=== PATIENT | male | born 1950 | race American Indian/Alaskan Native ===

== ENCOUNTER 2017-03-30 13:30 | Emergency (ER) | payer MEDICARE ==
--- NOTE | 2017-03-30 14:12 | XRay Report ---
FINAL REPORT EXAM: XR CHEST ROUTINE 2V HISTORY: Shortness of breath TECHNIQUE: Two view chest PA and lateral PRIORS: None. FINDINGS: Cardiac and mediastinal contours are unremarkable. No focal pulmonary infiltrate is identified. No pleural fluid collection seen. Pulmonary vasculature is unremarkable. There is a increase kyphosis lower thoracic spine with multiple compression fractures present age indeterminate IMPRESSION: Increase kyphosis of the thoracic spine with multiple compression fractures age indeterminate No acute cardiopulmonary abnormality
[2017-03-30 14:34] LABS: Eosinophils % (Auto) 1.3 % (0.0-4.3); Hematocrit 40.1 % (35.5-45.6); Hemoglobin 13.3 gm/dl (11.8-15.2); Mean Corpuscular HGB Conc 33 % (32-34); Mean Corpuscular Hemoglobin 32 pg (28-32); Mean Corpuscular Volume 96 fl (84-94); Platelet Count 145 K/mm3 (140-440); Red Blood Count 4.19 M/mm3 (3.65-5.03); Red Cell Distribution Width 13.6 % (13.2-15.2); White Blood Count 7.6 K/mm3 (4.5-11.0)
[2017-03-30 14:50] LABS: Anion Gap 19 mmol/L; BUN/Creatinine Ratio 20; Blood Urea Nitrogen 18 mg/dL (9-20); Calcium 8.9 mg/dL (8.4-10.2); Carbon Dioxide 25 mmol/L (22-30); Chloride 99.9 mmol/L (98-107); Glucose 133 mg/dL (75-100); Lipase 39 units/L (13-60); Potassium 4.1 mmol/L (3.6-5.0); Sodium 140 mmol/L (137-145)
[2017-03-30] MEDS ORDERED: ANTIVERT PO ONE (18:47)
--- NOTE | 2017-03-30 19:39 | Emergency Department Report ---
ED General Adult HPI - General Chief complaint: Weakness Stated complaint: WEAKNESS Time Seen by Provider: 03/30/17 18:11 Source: patient, family Mode of arrival: Ambulatory Limitations: Physical Limitation - History of Present Illness Initial comments: 66-year-old male here with dizzy spells seems to be positional vertigo no headache no stiff neck symptoms are improved and ED. pt states last night awoke w/ int. dizzy spells , no baird no stiff neck no photophobia, pt states it comes and goes, no problems w/ ambulating now in ed, sx seem positional and worse w/ head movement, w/ int n/v, denies other c/o, no cp no syncope, no n/v at present. -: Gradual Severity scale (0 -10): 0 Consistency: intermittent Associated Symptoms: nausea/vomiting. denies: confusion, chest pain, cough, diaphoresis, fever/chills, headaches, loss of appetite, malaise, rash, seizure, shortness of breath, syncope, weakness - Related Data Previous Rx's Medication Instructions Recorded Last Taken Type ALBUTEROL Inhaler [ProAir HFA 2 puff IH QID PRN #1 inhalation 09/14/13 Unknown Rx Inhaler] Tobramycin [Tobrex 0.3%] 1 - 2 drop OP Q4HR #14 drops 09/14/13 Unknown Rx Amoxicillin [Trimox CAP] 500 mg PO TID #30 capsule 11/09/13 Unknown Rx prednisoLONE 15 ml PO QDAY 5 Days ml 11/09/13 Unknown Rx Ranitidine HCl [Zantac] 300 mg PO QDAY #20 tablet 01/20/14 Unknown Rx Prednisone [predniSONE 10 mg 10 mg PO .TAPER #1 tab.ds.pk 11/13/14 Unknown Rx (6-Day Pack, 21 Tabs)] Cyclobenzaprine HCl [Flexeril 5 MG 5 mg PO BID PRN #20 tablet 08/14/15 Unknown Rx TAB] Diclofenac Sodium 50 mg PO Q12HR PRN #14 tablet.dr 08/14/15 Unknown Rx oxyCODONE /ACETAMINOPHEN [Percocet 1 tab PO Q6HR PRN #20 tablet 09/14/15 Unknown Rx 5/325] Ibuprofen [Motrin 600 MG tab] 600 mg PO Q8H PRN #30 tablet 03/14/16 Unknown Rx Allergies Allergy/AdvReac Type Severity Reaction Status Date / Time esomeprazole magnesium Allergy Unknown Verified 11/13/14 14:19 [From Nexium] ED Review of Systems ROS: Stated complaint: WEAKNESS Other details as noted in HPI Comment: All other systems reviewed and negative Constitutional: denies: diaphoresis, malaise Eyes: denies: eye discharge, vision change ENT: denies: dental pain, hearing loss, epistaxis, congestion Respiratory: denies: shortness of breath, SOB with exertion, SOB at rest, stridor, wheezing Cardiovascular: denies: chest pain, palpitations, dyspnea on exertion, orthopnea , edema, syncope, paroxysmal nocturnal dyspnea Gastrointestinal: denies: abdominal pain, nausea, vomiting, diarrhea, constipation, hematemesis, melena, hematochezia Musculoskeletal: denies: joint swelling, arthralgia Neurological: vertigo. denies: headache, weakness, numbness, paresthesias, confusion, abnormal gait Hematological/Lymphatic: denies: easy bleeding ED Past Medical Hx - Past Medical History Previous Medical History?: Yes Hx Hypertension: Yes (HTN) Hx CVA: No Hx Heart Attack/AMI: No Hx Diabetes: No Hx Deep Vein Thrombosis: No Hx Pulmonary Embolism: No Hx GERD: No Hx Liver Disease: No Hx Renal Disease: No Hx of Cancer: Yes (prostate) Hx Arthritis: Yes (ARTHRITIS) Hx Seizures: No Hx Kidney Stones: No Hx Asthma: No Hx COPD: No Hx Tuberculosis: No Hx Dementia: No Hx HIV: No Additional medical history: Patient states his prostate cancer was caught early and treated with radiation and has been no recurrence or metastases. - Surgical History Past Surgical History?: Yes Hx Coronary Stent: No Hx Open Heart Surgery: No Hx Pacemaker: No Hx Internal Defibrillator: No Hx Cholecystectomy: No Hx Appendectomy: No Hx Breast Surgery: No Additional Surgical History: bilateral hip replacement, glaucoma surgery - Social History Smoking Status: Never Smoker Substance Use Type: Alcohol, Prescribed - Medications Home Medications: Home Medications Medication Instructions Recorded Confirmed Last Taken Type ALBUTEROL Inhaler [ProAir HFA 2 puff IH QID PRN #1 inhalation 09/14/13 Unknown Rx Inhaler] Tobramycin [Tobrex 0.3%] 1 - 2 drop OP Q4HR #14 drops 09/14/13 Unknown Rx Amoxicillin [Trimox CAP] 500 mg PO TID #30 capsule 11/09/13 Unknown Rx prednisoLONE 15 ml PO QDAY 5 Days ml 11/09/13 Unknown Rx Ranitidine HCl [Zantac] 300 mg PO QDAY #20 tablet 01/20/14 Unknown Rx Prednisone [predniSONE 10 mg 10 mg PO .TAPER #1 tab.ds.pk 11/13/14 Unknown Rx (6-Day Pack, 21 Tabs)] Cyclobenzaprine HCl [Flexeril 5 MG 5 mg PO BID PRN #20 tablet 08/14/15 Unknown Rx TAB] Diclofenac Sodium 50 mg PO Q12HR PRN #14 tablet.dr 08/14/15 Unknown Rx oxyCODONE /ACETAMINOPHEN [Percocet 1 tab PO Q6HR PRN #20 tablet 09/14/15 Unknown Rx 5/325] Ibuprofen [Motrin 600 MG tab] 600 mg PO Q8H PRN #30 tablet 03/14/16 Unknown Rx ED Physical Exam - General Limitations: Physical Limitation General appearance: alert, in no apparent distress - Head Head exam: Present: atraumatic, normocephalic, normal inspection - Eye Eye exam: Present: normal appearance, PERRL, EOMI. Absent: nystagmus - ENT ENT exam: Present: normal exam, normal orophraynx, TM's normal bilaterally, normal external ear exam - Neck Neck exam: Present: full ROM. Absent: tenderness, meningismus - Respiratory Respiratory exam: Present: normal lung sounds bilaterally. Absent: respiratory distress, wheezes, rales, rhonchi, stridor, chest wall tenderness, accessory muscle use, decreased breath sounds, prolonged expiratory - Cardiovascular Cardiovascular Exam: Present: regular rate, normal rhythm, normal heart sounds - GI/Abdominal GI/Abdominal exam: Present: soft. Absent: tenderness, guarding, rebound, mass, bruit, pulsatile mass - Rectal Rectal exam: Present: deferred, other (denies black or bloody stool) - Extremities Exam Extremities exam: Present: normal inspection, full ROM, normal capillary refill. Absent: tenderness, pedal edema, joint swelling, calf tenderness - Back Exam Back exam: Present: normal inspection. Absent: tenderness, CVA tenderness (R), CVA tenderness (L), muscle spasm, paraspinal tenderness, vertebral tenderness - Neurological Exam Neurological exam: Present: alert, altered, oriented X3, CN II-XII intact, normal gait, other (negative cerebellar findings). Absent: motor sensory deficit - Psychiatric Psychiatric exam: Present: normal affect ED Course Vital Signs 03/30/17 03/30/17 03/30/17 13:37 17:45 19:48 Temperature 97.5 F L 98.7 F Pulse Rate 78 87 Respiratory 18 14 15 Rate Blood Pressure 176/93 172/85 O2 Sat by Pulse 96 98 Oximetry - Reevaluation(s) Reevaluation #1: 03/30/17 20:[address] scanning he had some Antivert. He was not ataxic without cerebellar findings. Symptoms are consistent with peripheral vertigo. ED Medical Decision Making - Lab Data Result diagrams: 03/30/17 14:15 03/30/17 14:15 - EKG Data -: EKG Interpreted by Me EKG shows normal: sinus rhythm - EKG Data Interpretation: unchanged when compared t, nonspecific ST-T wave jose - Radiology Data Radiology results: report reviewed - Medical Decision Making CT brain shows atrophy otherwise process. Chest x-ray shows compression fractures age indeterminate of the spine. Patient was apparently wanting to leave AMA without the CT was waiting to be red I was not notified of this. I returned CT was also discussed the workup and the results with the patient and family they were not in the room. Nurses stated that the patient was still alert and oriented 3 as he was on my exam he was verbal and cognizant nonintoxicated he was informed of risks of leaving including and disability and he elected to sign out AMA. He was discharged into the care of family members after signing AMA. Critical care attestation.: If time is entered above; I have spent that time in minutes in the direct care of this critically ill patient, excluding procedure time. ED Disposition Clinical Impression: Positional vertigo Disposition: DC-07 LEFT AGAINST MED ADVICE Is pt being admited?: No Condition: Stable Instructions: Vertigo (ED) Additional Instructions: See her doctor in one day return immediately for new or alarming symptoms or call 911 Referrals: KENJI MOORE MD [Primary Care Provider] - 3-5 Days Time of Disposition: 20:32
--- NOTE | 2017-03-30 20:08 | Cat Scan Report ---
FINAL REPORT EXAM: CT HEAD/BRAIN WO CON HISTORY: dizzy TECHNIQUE: Standard unenhanced CT of the head at 5.0 millimeter axial increments PRIORS: None. FINDINGS: The ventricular system is normal in size and configuration. There is mild cerebral atrophy. There is no evidence for mass lesion, mass effect, midline shift, acute intracranial hemorrhage, or acute ischemia/ infarction. Visualized paranasal sinuses demonstrates mucosal thickening in the right sphenoid, bilateral maxillary, and frontal sinuses. IMPRESSION: Mild atrophy. Chronic sinusitis. No acute intracranial process noted.
[2017-03-30 21:01] VITALS: BP 168/86
== END 2017-03-30 20:13 | disposition left against medical advice (07) ==
LOC: ED 13:30
DX: H81.10 Benign paroxysmal vertigo, unspecified ear (principal); I10 Essential (primary) hypertension; M19.90 Unspecified osteoarthritis, unspecified site; Z85.46 Personal history of malignant neoplasm of prostate
CPT/HCPCS: 36415; 70450; 71020; 80048; 83690; 84484; 85025; 93005; 93010; 99285

== ENCOUNTER 2019-05-30 13:50 | Emergency (ER) | payer MEDICARE ==
[2019-05-30 14:35] VITALS: BP 136/69
--- NOTE | 2019-05-30 14:44 | Event Note ---
ED Screening Note ED Screening Note: states he has generalized pain states that it mostly hurts him in the bilateral shoulders and lower back no fall or injury states he cannot lift things up as he used to states he saw his pcp and was diagnosed with arthritis, advised to do injections but he declined was given prescription for norco hx of bone cancer This initial assessment/diagnostic orders/clinical plan/treatment(s) is/are subject to change based on patients health status, clinical progression and re- assessment by fellow clinical providers in the ED. Further treatment and workup at subsequent clinical providers discretion. Patient/guardian urged not to elope from the ED as their condition may be serious if not clinically assessed and managed. just needs pain control
[2019-05-30] MEDS ORDERED: predniSONE 20 MG TAB PO ONE (16:39)
--- NOTE | 2019-05-30 16:45 | Emergency Department Report ---
ED General Adult HPI - General Chief complaint: Pain General Stated complaint: WEAK Time Seen by Provider: 05/30/19 14:34 Source: patient Mode of arrival: Ambulatory Limitations: No Limitations - History of Present Illness Initial comments: 68-year-old male with a history of hypertension controlled with medication, history of prostate cancer treated with radiation and glaucoma presents the ED complaining of bilateral shoulder and back pain that initially started a year ago. Patient states symptoms got better but recently his symptoms have worsened causing a lot of pain. Patient states that he is having pain with movement, standing or any type of movement. Patient states pain i feels like it is all over. Patient states that he followed up with his primary care physician Dr. akilah rice who states that he has arthritis and suggested some steroid injections. - Related Data Previous Rx's Medication Instructions Recorded Last Taken Type Albuterol INH(or & Nicu Only) 2 puff IH QID PRN #1 inhalation 09/14/13 Unknown Rx [ProAir HFA Inhaler] Tobramycin [Tobrex 0.3%] 1 - 2 drop OP Q4HR #14 drops 09/14/13 Unknown Rx Amoxicillin [Trimox CAP] 500 mg PO TID #30 capsule 11/09/13 Unknown Rx prednisoLONE 15 ml PO QDAY 5 Days ml 11/09/13 Unknown Rx Ranitidine HCl [Zantac] 300 mg PO QDAY #20 tablet 01/20/14 Unknown Rx Prednisone [predniSONE 10 mg 10 mg PO .TAPER #1 tab.ds.pk 11/13/14 Unknown Rx (6-Day Pack, 21 Tabs)] Cyclobenzaprine HCl [Flexeril 5 MG 5 mg PO BID PRN #20 tablet 08/14/15 Unknown Rx TAB] Diclofenac Sodium 50 mg PO Q12HR PRN #14 tablet.dr 08/14/15 Unknown Rx oxyCODONE /ACETAMINOPHEN [Percocet 1 tab PO Q6HR PRN #20 tablet 09/14/15 Unknown Rx 5/325] Ibuprofen [Motrin 600 MG tab] 600 mg PO Q8H PRN #30 tablet 03/14/16 Unknown Rx predniSONE [Deltasone] 60 mg PO DAILY #20 tablet 05/30/19 Unknown Rx Allergies Allergy/AdvReac Type Severity Reaction Status Date / Time esomeprazole magnesium Allergy Unknown Verified 11/13/14 14:19 [From Nexium] ED Review of Systems ROS: Stated complaint: WEAK Other details as noted in HPI Comment: All other systems reviewed and negative ED Past Medical Hx - Past Medical History Hx Hypertension: Yes (HTN) Hx CVA: No Hx Heart Attack/AMI: No Hx Diabetes: No Hx Deep Vein Thrombosis: No Hx Pulmonary Embolism: No Hx GERD: No Hx Liver Disease: No Hx Renal Disease: No Hx Arthritis: Yes (ARTHRITIS) Hx Seizures: No Hx Kidney Stones: No Hx Asthma: No Hx COPD: No Hx Tuberculosis: No Hx Dementia: No Hx HIV: No Additional medical history: Prostate CA - Surgical History Hx Coronary Stent: No Hx Open Heart Surgery: No Hx Pacemaker: No Hx Internal Defibrillator: No Hx Cholecystectomy: No Hx Appendectomy: No Hx Breast Surgery: No Additional Surgical History: Bilatteral hip replacement. - Social History Smoking Status: Never Smoker Substance Use Type: None - Medications Home Medications: Home Medications Medication Instructions Recorded Confirmed Last Taken Type Albuterol INH(or & Nicu Only) 2 puff IH QID PRN #1 inhalation 09/14/13 Unknown Rx [ProAir HFA Inhaler] Tobramycin [Tobrex 0.3%] 1 - 2 drop OP Q4HR #14 drops 09/14/13 Unknown Rx Amoxicillin [Trimox CAP] 500 mg PO TID #30 capsule 11/09/13 Unknown Rx prednisoLONE 15 ml PO QDAY 5 Days ml 11/09/13 Unknown Rx Ranitidine HCl [Zantac] 300 mg PO QDAY #20 tablet 01/20/14 Unknown Rx Prednisone [predniSONE 10 mg 10 mg PO .TAPER #1 tab.ds.pk 11/13/14 Unknown Rx (6-Day Pack, 21 Tabs)] Cyclobenzaprine HCl [Flexeril 5 MG 5 mg PO BID PRN #20 tablet 08/14/15 Unknown Rx TAB] Diclofenac Sodium 50 mg PO Q12HR PRN #14 tablet.dr 08/14/15 Unknown Rx oxyCODONE /ACETAMINOPHEN [Percocet 1 tab PO Q6HR PRN #20 tablet 09/14/15 Unknown Rx 5/325] Ibuprofen [Motrin 600 MG tab] 600 mg PO Q8H PRN #30 tablet 03/14/16 Unknown Rx predniSONE [Deltasone] 60 mg PO DAILY #20 tablet 05/30/19 Unknown Rx ED Physical Exam - General Limitations: No Limitations General appearance: alert, in no apparent distress - Head Head exam: Present: atraumatic, normocephalic - Eye Eye exam: Present: normal appearance - ENT ENT exam: Present: mucous membranes moist - Neck Neck exam: Present: normal inspection, full ROM. Absent: tenderness, lymphadenopathy - Respiratory Respiratory exam: Present: normal lung sounds bilaterally. Absent: respiratory distress - Cardiovascular Cardiovascular Exam: Present: regular rate, normal rhythm. Absent: systolic murmur, diastolic murmur, rubs, gallop - GI/Abdominal GI/Abdominal exam: Present: soft, normal bowel sounds - Rectal Rectal exam: Present: deferred - Extremities Exam Extremities exam: Present: normal inspection, full ROM, tenderness (To palpation of the joint and muscles muscles), normal capillary refill. Absent: joint swelling, calf tenderness - Back Exam Back exam: Present: normal inspection - Neurological Exam Neurological exam: Present: alert, oriented X3 - Psychiatric Psychiatric exam: Present: normal affect, normal mood - Skin Skin exam: Present: warm, dry, intact, normal color. Absent: rash ED Course Vital Signs 05/30/19 13:56 Temperature 97.6 F Pulse Rate 72 Respiratory 18 Rate Blood Pressure 136/69 O2 Sat by Pulse 96 Oximetry ED Medical Decision Making - Medical Decision Making 68-year-old male who presents with arthralgia and myalgia. I discussed with patient that bone pain could be due to metastatic bone cancer from the prostate. Patient did state that he has an appointment at [facility] next month for bone scan. I discussed with patient to make sure he keeps that appointment and call [facility] for follow-up appointment or sooner appointment. Patient states that he is primary care physician already has been taking [facility] pain medication. Patient put on a couple of days of prednisone Vital signs are normal patient is in no acute distress. Patient able to ambulate without any problems. Patient understands instructions and to follow-up Critical care attestation.: If time is entered above; I have spent that time in minutes in the direct care of this critically ill patient, excluding procedure time. ED Disposition Clinical Impression: Pain due to malignant neoplasm metastatic to bone Disposition: - TO HOME OR SELFCARE Is pt being admited?: No Does the pt Need Aspirin: No Condition: Stable Instructions: Chronic Pain (ED) Additional Instructions: Make sure to follow up with the primary care physician as discussed. Take all your medications as you've been prescribed. If you have any worsening symptoms or develop new symptoms please return to ED immediately. Prescriptions: predniSONE [Deltasone] 60 mg PO DAILY #20 tablet Referrals: DHAVAL VASQUEZ MD [Primary Care Provider] - 3-5 Days Forms: Accompanied Note, Work/School Release Form(ED) Time of Disposition: 16:51
== END 2019-05-30 17:04 | disposition home or self-care (01) ==
LOC: ED 13:50
DX: G89.3 Neoplasm related pain (acute) (chronic) (principal); C79.51 Secondary malignant neoplasm of bone; I10 Essential (primary) hypertension; M19.90 Unspecified osteoarthritis, unspecified site; Z98.890 Other specified postprocedural states; Z79.1 Long term (current) use of non-steroidal anti-inflammatories (NSAID); Z79.899 Other long term (current) drug therapy; Z88.8 Allergy status to other drugs, medicaments and biological substances
CPT/HCPCS: 99282; J7512

== ENCOUNTER 2020-01-31 13:03 | Emergency (ER) | payer MEDICARE ==
--- NOTE | 2020-01-31 13:33 | Event Note ---
ED Screening Note Date of service: 01/31/20 Time: 13:31 ED Screening Note: The patient was evaluated in the emergency department for symptoms described in the history of present illness. He/she was evaluated in the context of the global COVID-19 pandemic, which necessitated consideration that the patient might be at risk for infection with the virus that causes COVID-19. Institutional protocols and algorithms that pertain to the evaluation of patients at risk for COVID-19 are in a state of rapid change based on information released by regulatory bodies including the CDC and federal and state organizations. These policies and algorithms were followed during the patient's care in the emergency department. Please note that these policies, procedures and recommendations changed on a rapid basis. 69-year-old -[place] Citizen male brought in by complaining of body aches and pain for 2 days. Generalized weakness. Reports difficulty to walk. The reports that the PCP has told the patient that the cancer has spread from the prostate to the brain and to the bone. reports that he seems to be altered mental status. She is bringing him into be admitted for hospice. This initial assessment/diagnostic orders/clinical plan/treatment(s) is/are subject to change based on patients health status, clinical progression and re- assessment by fellow clinical providers in the ED. Further treatment and workup at subsequent clinical providers discretion. Patient/guardian urged not to elope from the ED as their condition may be serious if not clinically assessed and managed. Initial orders include:
[2020-01-31 14:08] LABS: Bacteria,Urine 1+ /HPF (Negative); Bilirubin,Urine NEG (Negative); Blood,Urine NEG (Negative); Color,Urine Yellow (Yellow); Mucus,Urine FEW /HPF; Protein,Urine <15 mg/dL mg/dL (Negative); Urobilinogen,Urine < 2.0 mg/dL (<2.0)
[2020-01-31 14:26] LABS: Hematocrit 36.6 % (35.5-45.6); Hemoglobin 12.2 gm/dl (11.8-15.2); Mean Corpuscular HGB Conc 33 % (32-34); Mean Corpuscular Volume 93 fl (84-94); Red Blood Count 3.94 M/mm3 (3.65-5.03); Red Cell Distribution Width 14.1 % (13.2-15.2)
[2020-01-31 14:30] LABS: Platelet Count 185 K/mm3 (140-440)
[2020-01-31 14:41] LABS: Alanine Aminotransferase < 5 units/L (7-56); Albumin 3.5 g/dL (3.9-5); BUN/Creatinine Ratio 12; Blood Urea Nitrogen 11 mg/dL (9-20); Calcium 9.4 mg/dL (8.4-10.2); Hemolysis Index 9
[2020-01-31] MEDS ORDERED: oxyCODONE /ACETAMINOPHEN 5-325MG TAB PO ONE (17:15)
[2020-01-31] MEDS ORDERED: NITROFURANTOIN MONOHYD/M-CRYST 100 MG CAP PO ONE (17:15)
--- NOTE | 2020-01-31 17:20 | Emergency Department Report ---
ED General Adult HPI - General Chief complaint: Pain General Stated complaint: BODY PAIN Time Seen by Provider: 01/31/20 17:04 Source: patient, family Mode of arrival: Ambulatory Limitations: Physical Limitation - History of Present Illness Initial comments: 69-year male with a past medical history of prostate cancer with mets, hypertension, arthritis, bilateral hip replacement presents to the hospital complaining of right rib pain for the past 3 days. Patient complains of constant right anterior lateral rib pain. Pain is constant worse with movement in and out of bed and sneezing. He denies recent fall, shortness of breath, fever, calf tenderness, leg edema, history of PE/DVT, or cough. Patient apparently finished 20 days of radiation for prostate cancer and was told that he had bone mets. He is currently on oral chemotherapy agent for almost 1 year. - Related Data Previous Rx's Medication Instructions Recorded Last Taken Type Albuterol Mdi (or & Nicu Only) 2 puff IH QID PRN #1 inhalation 09/14/13 Unknown Rx [ProAir HFA Inhaler] Tobramycin [Tobrex 0.3%] 1 - 2 drop OP Q4HR #14 drops 09/14/13 Unknown Rx Amoxicillin [Trimox CAP] 500 mg PO TID #30 capsule 11/09/13 Unknown Rx prednisoLONE 15 ml PO QDAY 5 Days ml 11/09/13 Unknown Rx Ranitidine HCl [Zantac] 300 mg PO QDAY #20 tablet 01/20/14 Unknown Rx Prednisone [predniSONE 10 mg 10 mg PO .TAPER #1 tab.ds.pk 11/13/14 Unknown Rx (6-Day Pack, 21 Tabs)] Cyclobenzaprine HCl [Flexeril 5 MG 5 mg PO BID PRN #20 tablet 08/14/15 Unknown Rx TAB] Diclofenac Sodium 50 mg PO Q12HR PRN #14 tablet.dr 08/14/15 Unknown Rx oxyCODONE /ACETAMINOPHEN [Percocet 1 tab PO Q6HR PRN #20 tablet 09/14/15 Unknown Rx 5/325] Ibuprofen [Motrin 600 MG tab] 600 mg PO Q8H PRN #30 tablet 03/14/16 Unknown Rx predniSONE [Deltasone] 60 mg PO DAILY #20 tablet 05/30/19 Unknown Rx Nitrofurantoin Burke/M-Cryst 100 mg PO Q12HR #12 capsule 01/31/20 Unknown Rx [Macrobid CAP] oxyCODONE /ACETAMINOPHEN [Percocet 1 tab PO Q4HR PRN #20 tab 01/31/20 Unknown Rx 5/325] Allergies Allergy/AdvReac Type Severity Reaction Status Date / Time brimonidine [From Alphagan P] Allergy Unknown Verified 01/31/20 13:05 esomeprazole magnesium Allergy Unknown Verified 01/31/20 13:05 [From Nexium] Iodinated Contrast Media Allergy Unknown Verified 01/31/20 13:05 ED Review of Systems ROS: Stated complaint: BODY PAIN Other details as noted in HPI Comment: All other systems reviewed and negative ED Past Medical Hx - Past Medical History Previous Medical History?: Yes Hx Hypertension: Yes (HTN) Hx CVA: No Hx Heart Attack/AMI: No Hx Diabetes: No Hx Deep Vein Thrombosis: No Hx Pulmonary Embolism: No Hx GERD: No Hx Liver Disease: No Hx Renal Disease: No Hx Arthritis: Yes (ARTHRITIS) Hx Seizures: No Hx Kidney Stones: No Hx Asthma: No Hx COPD: No Hx Tuberculosis: No Hx Dementia: No Hx HIV: No Additional medical history: Prostate CA - Surgical History Past Surgical History?: Yes Hx Coronary Stent: No Hx Open Heart Surgery: No Hx Pacemaker: No Hx Internal Defibrillator: No Hx Cholecystectomy: No Hx Appendectomy: No Hx Breast Surgery: No Additional Surgical History: Bilatteral hip replacement. - Social History Smoking Status: Never Smoker Substance Use Type: Prescribed - Medications Home Medications: Home Medications Medication Instructions Recorded Confirmed Last Taken Type Albuterol Mdi (or & Nicu Only) 2 puff IH QID PRN #1 inhalation 09/14/13 Unknown Rx [ProAir HFA Inhaler] Tobramycin [Tobrex 0.3%] 1 - 2 drop OP Q4HR #14 drops 09/14/13 Unknown Rx Amoxicillin [Trimox CAP] 500 mg PO TID #30 capsule 11/09/13 Unknown Rx prednisoLONE 15 ml PO QDAY 5 Days ml 11/09/13 Unknown Rx Ranitidine HCl [Zantac] 300 mg PO QDAY #20 tablet 01/20/14 Unknown Rx Prednisone [predniSONE 10 mg 10 mg PO .TAPER #1 tab.ds.pk 11/13/14 Unknown Rx (6-Day Pack, 21 Tabs)] Cyclobenzaprine HCl [Flexeril 5 MG 5 mg PO BID PRN #20 tablet 08/14/15 Unknown Rx TAB] Diclofenac Sodium 50 mg PO Q12HR PRN #14 tablet. 08/14/15 Unknown Rx oxyCODONE /ACETAMINOPHEN [Percocet 1 tab PO Q6HR PRN #20 tablet 09/14/15 Unknown Rx 5/325] Ibuprofen [Motrin 600 MG tab] 600 mg PO Q8H PRN #30 tablet 03/14/16 Unknown Rx predniSONE [Deltasone] 60 mg PO DAILY #20 tablet 05/30/19 Unknown Rx Nitrofurantoin Burke/M-Cryst 100 mg PO Q12HR #12 capsule 01/31/20 Unknown Rx [Macrobid CAP] oxyCODONE /ACETAMINOPHEN [Percocet 1 tab PO Q4HR PRN #20 tab 01/31/20 Unknown Rx 5/325] ED Physical Exam - General Limitations: Physical Limitation - Other Other exam information: General: No acute distress Head: Atraumatic Eyes: normal appearance ENT: Moist mucous membranes Neck: Normal appearance, no midline tenderness Chest: Clear to auscultation bilaterally, reproducible right anterolateral rib tenderness to palpation without crepitus, skin abrasion/bruising CV: Regular rate and rhythm Abdomen: Soft, normal bowel sounds, nontender, nondistended, no rebound or guarding Back: Normal inspection Extremity: Normal inspection, full range of motion, no calf tenderness or leg edema Neuro: Alert O x 3, no facial asymmetry, speech clear, no gross motor sensory deficit Psych: Appropriate behavior Skin: No rash ED Course Vital Signs 01/31/20 01/31/20 13:06 18:22 Temperature 98.6 F Pulse Rate 81 Respiratory 20 16 Rate Blood Pressure 130/63 O2 Sat by Pulse 100 Oximetry - Reevaluation(s) Reevaluation #1: 01/31/20 18:26 I spoke to patient's via phone and informed her of patient's diagnosis. I feel like she has concerns about her ability to care for him at home. I reached out to her primary care doctor Dr. Vasquez and also informed him of patient's diagnosis and treatment plan. He requested follow-up in the office tomorrow - Consultations Consultation #1: 01/31/20 18:28 I reached out to her primary care doctor Dr. Vasquez and also informed him of patient's diagnosis and treatment plan. He requested follow-up in the office tomorrow ED Medical Decision Making - Lab Data Result diagrams: 01/31/20 13:54 01/31/20 13:54 Lab Results 01/31/20 01/31/20 01/31/20 Range/Units 13:54 13:54 Unknown WBC 8.1 (4.5-11.0) K/mm3 RBC 3.94 (3.65-5.03) M/mm3 Hgb 12.2 (11.8-15.2) gm/dl Hct 36.6 (35.5-45.6) % MCV 93 (84-94) fl MCH 31 (28-32) pg MCHC 33 (32-34) % RDW 14.1 (13.2-15.2) % Plt Count 185 (140-440) K/mm3 Sodium 139 (137-145) mmol/L Potassium 3.4 L (3.6-5.0) mmol/L Chloride 101.4 (98-107) mmol/L Carbon Dioxide 27 (22-30) mmol/L Anion Gap 14 mmol/L BUN 11 (9-20) mg/dL Creatinine 0.9 (0.8-1.3) mg/dL Estimated GFR > 60 ml/min BUN/Creatinine Ratio 12 % Glucose 123 H (75-100) mg/dL Calcium 9.4 (8.4-10.2) mg/dL Phosphorus 3.20 (2.5-4.5) mg/dL Magnesium 2.30 (1.7-2.3) mg/dL Total Bilirubin 1.30 H (0.1-1.2) mg/dL AST 12 (5-40) units/L ALT < 5 L (7-56) units/L Alkaline Phosphatase 114 (35-129) units/L Total Protein 6.6 (6.3-8.2) g/dL Albumin 3.5 L (3.9-5) g/dL Albumin/Globulin Ratio 1.1 % Urine Color Yellow (Yellow) Urine Turbidity Slightly-cloudy (Clear) Urine pH 6.0 (5.0-7.0) Ur Specific [place] 1.015 (1.003-1.030) Urine Protein <15 mg/dl (Negative) mg/dL Urine Glucose (UA) Neg (Negative) mg/dL Urine Ketones Neg (Negative) mg/dL Urine Blood Neg (Negative) Urine Nitrite Neg (Negative) Urine Bilirubin Neg (Negative) Urine Urobilinogen < 2.0 (<2.0) mg/dL Ur Leukocyte Esterase Neg (Negative) Urine WBC (Auto) 8.0 H (0.0-6.0) /HPF Urine RBC (Auto) 128.0 (0.0-6.0) /HPF Urine Bacteria (Auto) 1+ (Negative) /HPF Urine Mucus Few /HPF - Radiology Data Radiology results: report reviewed XR ribs UNI w PA Chest 3+V RT INDICATION / CLINICAL INFORMATION: nontraumatic R rib pain hx of met prostate ca COMPARISON: X-ray 03/30/2017 FINDINGS: SUPPORT DEVICES: None. HEART / MEDIASTINUM: No significant abnormality. LUNGS / PLEURA: Lungs are clear. Costophrenic sulci are sharp. No pneumothorax. RIBS: There are patchy areas of sclerosis involving osseous structures consistent with patient's history of prostate metastasis. There is a mildly displaced right lateral seventh rib fracture. IMPRESSION: 1. Mildly displaced right lateral seventh rib fracture which could be a pathologic fracture. There are patchy areas of sclerosis involving the osseous structures most likely related to prostate cancer metastasis given the provided history. - Medical Decision Making Patient presents to the hospital with multiple metastatic lesions to the rib and a likely pathologic rib fracture. It is unlikely screening provider informing that communicated that she was hoping patient will be admitted to the hospital for hospice placement. Patient is a patient's primary providers are affiliated with [place] he has another visit February 08. As per [place] prescription monitoring site patient was placed on tramadol in October and has not recently filled any narcotic prescriptions 11/04/2019 1 11/03/2019 TRAMADOL HCL 50 MG TABLET 60.0 15 ME MERLYN [id number] [facility] (4882) 0 20.0 [place] 04/23/2019 1 04/21/2019 HYDROCODONE-ACETAMIN 5-325 MG 14.0 7 ON OBI [id number] [facility] (7882) 0 10.0 [place] Patient provided Percocet in the ED and will be discharged with Percocet for pain and encouraged to follow-up with his PMD for hospice placement Patient also provided Macrobid for UTI and p.o. potassium for mild hypokalemia and received incentive spirometer with teaching prior to discharge I also discussed case with patient's and primary care doctor Dr. Monique, follow up tomorrow advised Critical Care Time: No Critical care attestation.: If time is entered above; I have spent that time in minutes in the direct care of this critically ill patient, excluding procedure time. ED Disposition Clinical Impression: Pathological fracture of rib of right side, Prostate cancer metastatic to bone, UTI (urinary tract infection) Disposition: TO HOME OR SELFCARE Is pt being admited?: No Does the pt Need Aspirin: No Condition: Stable Instructions: How to Use an Incentive Spirometer (ED), Urinary Tract Infection in Men (ED), Prostate Cancer (GEN), Rib Fracture (ED) Additional Instructions: Take the medication as prescribed. Follow-up with Dr Vasquez tomorrow. Return if symptoms worsen as indicated by your discharge instructions. Prescriptions: Nitrofurantoin Burke/M-Cryst [Macrobid CAP] 100 mg PO Q12HR #12 capsule oxyCODONE /ACETAMINOPHEN [Percocet 5/325] 1 tab PO Q4HR PRN #20 tab PRN Reason: Pain , Severe (7-10) Referrals: DHVAAL VASQUEZ MD [Primary Care Provider] - 02/01/20 (I spoke to Dr Vasquez and he wants to see you in the office on Saturday.) Time of Disposition: 19:30
--- NOTE | 2020-01-31 17:59 | XRay Report ---
XR ribs UNI w PA Chest 3+V RT INDICATION / CLINICAL INFORMATION: nontraumatic R rib pain hx of met prostate ca COMPARISON: X-ray 03/30/2017 FINDINGS: SUPPORT DEVICES: None. HEART / MEDIASTINUM: No significant abnormality. LUNGS / PLEURA: Lungs are clear. Costophrenic sulci are sharp. No pneumothorax. RIBS: There are patchy areas of sclerosis involving osseous structures consistent with patient's hist ory of prostate metastasis. There is a mildly displaced right lateral seventh rib fracture. IMPRESSION: 1. Mildly displaced right lateral seventh rib fracture which could be a pathologic fracture. There ar e patchy areas of sclerosis involving the osseous structures most likely related to prostate cancer m etastasis given the provided history. Signer Name: Nabeel Claros MD Signed: 01/31/2020 5:54 PM Workstation Name: [id number]
[2020-01-31] MEDS ORDERED: POTASSIUM CHLORIDE ER 20 MEQ TAB PO ONE (18:18)
[2020-01-31 19:49] VITALS: BP 124/81
== END 2020-01-31 19:47 | disposition home or self-care (01) ==
LOC: ED 13:03
DX: M84.48XA Pathological fracture, other site, initial encounter for fracture (principal); C61 Malignant neoplasm of prostate; C79.51 Secondary malignant neoplasm of bone; N39.0 Urinary tract infection, site not specified; I10 Essential (primary) hypertension; M19.91 Primary osteoarthritis, unspecified site; Z98.890 Other specified postprocedural states; Z79.1 Long term (current) use of non-steroidal anti-inflammatories (NSAID); Z79.2 Long term (current) use of antibiotics; Z79.899 Other long term (current) drug therapy; Z88.8 Allergy status to other drugs, medicaments and biological substances
CPT/HCPCS: 36415; 80053; 81001; 83735; 84100; 85027

== ENCOUNTER 2020-05-03 14:56 | Emergency (ER) | payer MEDICARE ==
[2020-05-03 15:25] VITALS: BP 200/97
--- NOTE | 2020-05-03 15:58 | Emergency Department Report ---
ED Eye Problem HPI - General Chief complaint: Eye Problems Stated complaint: EYE SWOLLEN Time Seen by Provider: 05/03/20 15:25 Source: patient Mode of arrival: Wheelchair Limitations: No Limitations - History of Present Illness Initial comments: Patient is a pleasant 69-year-old male that comes to the emergency room today after showing up with his eye appointment in [place] and the doctor not being there. Apparently there was a mixup with the scheduling and his scheduled eye appointment has fallen through. So he came to the emergency room. This was a regularly scheduled follow-up appointment for patient's glaucoma. He states that he has had minor right thigh swelling for the last couple days. He states this is never happened before. He denies any trauma. He denies a fall. He denies a known foreign body or traumatic injury to the eye. Patient denies any other symptoms. chief complaint: eye redness -: Gradual, days(s) Onset Description: gradual Location: right eye Place: home If Injury: none Severity: mild Consistency: constant Context: history of glaucoma Associated Symptoms: none Treatments Prior to Arrival: none - Related Data Patient Tetanus UTD: Yes Previous Rx's Medication Instructions Recorded Last Taken Type Tobramycin [Tobrex 0.3%] 1 - 2 drop OP Q4HR #14 drops 09/14/13 Unknown Rx Polymyxin B Sulf/Trimethoprim 1 drop OP QID #1 bottle 05/03/20 Unknown Rx [Polytrim Eye Drops 01522irxxi/0.1%] Allergies Allergy/AdvReac Type Severity Reaction Status Date / Time brimonidine [From Alphagan P] Allergy Unknown Verified 01/31/20 13:05 esomeprazole magnesium Allergy Unknown Verified 01/31/20 13:05 [From Nexium] Iodinated Contrast Media Allergy Unknown Verified 01/31/20 13:05 ED Review of Systems ROS: Stated complaint: EYE SWOLLEN Other details as noted in HPI Comment: All other systems reviewed and negative ED Past Medical Hx - Past Medical History Previous Medical History?: Yes Hx Hypertension: Yes (HTN) Hx CVA: No Hx Heart Attack/AMI: No Hx Diabetes: No Hx Deep Vein Thrombosis: No Hx Pulmonary Embolism: No Hx GERD: No Hx Liver Disease: No Hx Renal Disease: No Hx Arthritis: Yes (ARTHRITIS) Hx Seizures: No Hx Kidney Stones: No Hx Asthma: No Hx COPD: No Hx Tuberculosis: No Hx Dementia: No Hx HIV: No Additional medical history: Prostate CA - Surgical History Past Surgical History?: Yes Hx Coronary Stent: No Hx Open Heart Surgery: No Hx Pacemaker: No Hx Internal Defibrillator: No Hx Cholecystectomy: No Hx Appendectomy: No Hx Breast Surgery: No Additional Surgical History: Bilatteral hip replacement. - Family History Family history: no significant - Social History Smoking Status: Never Smoker Substance Use Type: Prescribed - Medications Home Medications: Home Medications Medication Instructions Recorded Confirmed Last Taken Type Tobramycin [Tobrex 0.3%] 1 - 2 drop OP Q4HR #14 drops 09/14/13 Unknown Rx Polymyxin B Sulf/Trimethoprim 1 drop OP QID #1 bottle 05/03/20 Unknown Rx [Polytrim Eye Drops 06988fnnut/0.1%] ED Physical Exam - General Limitations: No Limitations General appearance: alert, in no apparent distress - Head Head exam: Present: atraumatic, normocephalic - Eye Eye exam: Present: normal appearance, EOMI, other (Minor swelling and redness around the right eye). Absent: periorbital swelling, periorbital tenderness - ENT ENT exam: Present: mucous membranes moist - Neck Neck exam: Present: normal inspection - Respiratory Respiratory exam: Present: normal lung sounds bilaterally. Absent: respiratory distress - Cardiovascular Cardiovascular Exam: Present: regular rate, normal rhythm, other (hr 100). Absent: systolic murmur, diastolic murmur, rubs, gallop - GI/Abdominal GI/Abdominal exam: Present: soft, normal bowel sounds - Rectal Rectal exam: Present: deferred - Extremities Exam Extremities exam: Present: normal inspection - Back Exam Back exam: Present: normal inspection - Neurological Exam Neurological exam: Present: alert, oriented X3 - Psychiatric Psychiatric exam: Present: normal affect, normal mood - Skin Skin exam: Present: warm, dry, intact, normal color. Absent: rash ED Course Vital Signs 05/03/20 15:24 Temperature 97.8 F Pulse Rate 107 H Respiratory 16 Rate Blood Pressure 200/97 [Right] O2 Sat by Pulse 97 Oximetry ED Medical Decision Making - Medical Decision Making no inc uptake of fluro. stain p tetracaine placed PERRL vision unchanged globe intact EOMS intact no pain with eye movement Discussed with Dr Medhat sol home with gtt and follow up with his optha in AM, He's also been given a referral to our local optha MD. pt verbalizes understanding of dc poc Patient instructed to monitor his blood pressure. He is taking his medications. 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 Vital Signs 05/03/20 15:24 Temperature 97.8 F Pulse Rate 107 H Respiratory 16 Rate Blood Pressure 200/97 [Right] O2 Sat by Pulse 97 Oximetry - Differential Diagnosis ro fb/abrasion/infection Critical care attestation.: If time is entered above; I have spent that time in minutes in the direct care of this critically ill patient, excluding procedure time. ED Disposition Clinical Impression: Eye swelling, right, History of glaucoma Disposition: DC-01 TO HOME OR SELFCARE Is pt being admited?: No Does the pt Need Aspirin: No Condition: Stable Instructions: Glaucoma, [id number] Additional Instructions: SEE EYE MD LEBRON CALL YOUR SEARS EYE MD OR SEE THE EYE MD-REFERRAL BELOW WARM COMPRESSES Prescriptions: Polymyxin B Sulf/Trimethoprim [Polytrim Eye Drops [id number]/0.1%] 1 drop OP QID #1 bottle Referrals: DALLIN IBARRA MD [Staff Physician] - 3-5 Days Time of Disposition: 15:57
== END 2020-05-03 15:55 | disposition home or self-care (01) ==
LOC: ED 14:56
DX: H02.843 Edema of right eye, unspecified eyelid (principal); Z79.899 Other long term (current) drug therapy
CPT/HCPCS: 99282